=== PATIENT | male | born 1960 | race Two or more races ===

== ENCOUNTER 2016-10-19 10:29 | Day surgery (SDC) | payer OTHER ==
[2016-10-19 11:14] VITALS: BMI 30.4
[2016-10-19] MEDS ORDERED: PROPOFOL 20 ML ONE (12:23)
[2016-10-19] MEDS ORDERED: LIDOCAINE HCL/PF 2% SDV 5ML VIAL ONE (12:23)
[2016-10-19 13:10] VITALS: TEMP 97.8
[2016-10-19 14:42] VITALS: BP 109/68; PULSE 65
--- NOTE | 2016-10-20 15:51 | PATH ---
Surgical Pathology Report Patient Name: JARAD IBRAHIM [facility]. Rec. #: [id number] /Age/Gender: 1960 (Age: 56) / M Account: [id number] Location: [facility]-ENDOSCOPY Taken: 10/19/2016 Received: 10/19/2016 Reported: 10/20/2016 Physicians: Roldan Alamo M.D. Specimen(s) Received A: BX ERYTHEMA BODY B: BX GE JUNCTION Clinical History Epigastric pain Erythema body, irregular Z-line Final Diagnosis A. STOMACH, BODY, ERYTHEMA, BIOPSY: GASTRIC OXYNTIC MUCOSA WITH MILD TO MODERATE CHRONIC GASTRITIS WITH FOCAL SURFACE EROSION. IMMUNOSTAIN FOR H. PYLORI IS NEGATIVE FOR ORGANISMS. B. GE JUNCTION, IRREGULAR Z-LINE, BIOPSY: SQUAMOCOLUMNAR JUNCTIONAL MUCOSA IS ACTIVE AND CHRONIC INFLAMMATION AND REFLUX TYPE CHANGES. NO INTESTINAL METAPLASIA (HODGES'S ESOPHAGUS) IDENTIFIED. Electronically Signed Sudhakar Darnell M.D. Gross Description A. Received in formalin, labeled "biopsy erosion body" are 2 dumont, irregular portions of soft tissue measuring 0.2 and 0.5 cm in greatest dimension. The specimens are submitted in toto in one cassette. B. Received in formalin, labeled "biopsy of GE junction irregular Z-line" are 2 dumont, irregular portions of soft tissue averaging 0.3 cm in greatest dimension. The specimens are submitted in toto in one cassette. 10/19/201610/19/2016
== END 2016-10-19 13:50 | disposition home or self-care (01) ==
LOC: JASU-ENDO 10:29
PROVIDERS: ATTEND Internal Medicine Gastroenterology
PROC: 0DB68ZX Excision of Stomach, Via Natural or Artificial Opening Endoscopic, Diagnostic (ICD-10-PCS; 2016-10-19)
PROC: 0DB58ZX Excision of Esophagus, Via Natural or Artificial Opening Endoscopic, Diagnostic (ICD-10-PCS; principal; 2016-10-19 11:30)
DX: K29.50 Unspecified chronic gastritis without bleeding (principal)
CPT/HCPCS: 88305-TC; 88342-TC

== ENCOUNTER 2016-12-05 15:41 | Observation (INO) | payer OTHER ==
[2016-12-05 16:08] VITALS: TEMP 98.6; BMI 30.4
[2016-12-05] MEDS ORDERED: ASPIRIN 81 MG CHEWABLE TABLETS PO ONE (18:06)
--- NOTE | 2016-12-05 18:07 | PDOC ---
History of Present Illness - General History Source: Patient Exam Limitations: No Limitations <Latisha Miles - Last Filed: 12/05/16 18:13> <Beverly Ram - Last Filed: 12/06/16 01:41> - General Chief Complaint: Chest Pain Stated Complaint: CHEST PAIN Time Seen by Provider: 12/05/16 17:04 - History of Present Illness Initial Comments: 12/05/16 18:13 The patient is a 56 year old male with a significant past medical history of hyperlipidemia who presents to the ED with complaints of chest pain since earlier today. The patient reports a sudden onset of left sided non-radiating chest pain around 10:30 am this morning. He states his chest pain lasted for several minutes and he took an aspirin before symptoms resided. Patient reports another episode of chest pain around 12:30 pm earlier today. Patient describes the chest pain as sharp, a 7/10 in severity, and states he has never felt anything like this before. Patient had a recent Holter Monitor for a week that only showed tachycardia. Patient was told to take a daily aspirin by his bankruptcy paralegal. He states he had a Stress Test done 4 years ago that showed normal results. Denies shortness of breath or palpitations. Denies nausea, vomiting, or diarrhea. Denies dysuria or change in urinary output. Denies lightheadedness or headache. Denies any other symptoms. Senior Pensions Administrator: Dr. Aime Rojas (affiliated with [phone]) (Latisha Miles) Past History <Latisha Miles - Last Filed: 12/05/16 18:13> - Past Medical History Anemia: No Asthma: No Cancer: No Cardiac Disorders: No CVA: No COPD: No CHF: No Dementia: No Diabetes: No GI Disorders: No Disorders: No HTN: No Hypercholesterolemia: Yes Kidney Stones: Yes Liver Disease: No Seizures: No Thyroid Disease: No - Immunization History Immunization Up to Date: Yes - Suicide/Smoking/Psychosocial Hx Smoking Status: No Smoking History: Never smoked Have you smoked in the past 12 months: No Number of Cigarettes Smoked Daily: 0 If you are a former smoker, when did you quit?: 12yrs ago Information on smoking cessation initiated: No Hx Alcohol Use: No Drug/Substance Use Hx: No Substance Use Type: Alcohol <Beverly Ram - Last Filed: 12/06/16 01:41> - Past Medical History Allergies/Adverse Reactions: Allergies Allergy/AdvReac Type Severity Reaction Status Date / Time No Known Allergies Allergy Verified 12/05/16 16:02 Home Medications: Ambulatory Orders Aspirin [ASA -] 81 mg PO HS 10/16/13 Cardiac Specific PMH - Complaint Specific PMHX Pacemaker: No <Beverly Ram - Last Filed: 12/06/16 01:41> Review of Systems - Review of Systems Able to Perform ROS?: Yes All Other Systems: Reviewed and Negative <Latisha Miles - Last Filed: 12/05/16 18:13> <Beverly Ram - Last Filed: 12/06/16 01:41> - Review of Systems Comments:: 12/05/16 18:13 CONSTITUTIONAL: No reported: Fever, Chills, Diaphoresis, Generalized Weakness, Malaise, Loss of Appetite HEENT: No reported: Rhinorrhea, Nasal Congestion, Throat Pain, Throat Swelling, Difficulty Swallowing, Mouth Swelling, Ear Pain, Eye Pain, Visual Changes CARDIOVASCULAR: + chest pain No reported: Syncope, Palpitations, Irregular Heart Rate, Lightheadedness, Peripheral Edema RESPIRATORY: No reported: Cough, Shortness of Breath, SOB with Exertion, Orthopnea, Wheezing , Stridor, Hemoptysis GASTROINTESTINAL: No reported: Abdominal pain, Abdominal Distension, Nausea, Vomiting, Diarrhea, Constipation, Melena, Hematochezia GENITOURINARY: No reported: Dysuria, Frequency, Urgency, Hesitancy, Flank Pain, Genital Pain MUSCULOSKELETAL: No reported: Myalgia, Arthralgia, Joint Swelling, Back pain, Neck Pain SKIN: No reported: Rash, Itching, Pallor HEMEATOLOGIC/IMMUNOLOGIC: No reported: Easy Bleeding, Easy Bruising, Lymphadenopathy, Frequent infections ENDOCRINE: No reported: Unexplained Weight Gain, Unexplained Weight Loss, Heat Intolerance , Cold Intolerance NEUROLOGIC: No reported: Headache, Focal Weakness, Paresthesias, Vertigo, Lightheadedness, Unsteady Gait, Seizure, Mental Status Changes, Incontinence PSYCHIATRIC: No reported: Anxiety, Depression (Latisha Miles) *Physical Exam <Latisha Miles - Last Filed: 12/05/16 18:13> <Beverly Ram - Last Filed: 12/06/16 01:41> - Vital Signs Last Vital Signs Temp Pulse Resp BP Pulse Ox 98.6 F 70 18 109/78 100 12/05/16 16:02 12/05/16 20:36 12/05/16 20:36 12/05/16 20:36 12/05/16 20:36 - Physical Exam Comments: 12/05/16 18:13 GENERAL: Well developed, well nourished. Awake and alert. No acute distress. HEENT: Normocephalic, atraumatic. PERRLA, EOMI. No conjunctival pallor. Sclera are non- icteric. Moist mucous membranes. Oropharynx is clear. NECK: Supple. Full ROM. No JVD. Carotid pulses 2+ and symmetric, without bruits. No thyromegaly. No lymphadenopathy. CARDIOVASCULAR: Regular rate and rhythm. No murmurs, rubs, or gallops. Distal pulses are 2+ and symmetric. PULMONARY: No evidence of respiratory distress. Lungs clear to auscultation bilaterally. No wheezing, rales or rhonchi. ABDOMINAL: Soft. Non-tender. Non-distended. No rebound or guarding. No organomegaly. Normoactive bowel sounds. MUSCULOSKELETAL Normal range of motion at all joints. No bony deformities or tenderness. No CVA tenderness. EXTREMITIES: No cyanosis. No clubbing. No edema. No calf tenderness. SKIN: + multiple circular bruising patterns on back as a result of cupping Warm and dry. Normal capillary refill. No rashes. No jaundice. NEUROLOGICAL: Alert, awake, appropriate. Cranial nerves 2-12 intact. No deficits to light touch and temperature in face, upper extremities and lower extremities. No motor deficits in the in face, upper extremities and lower extremities. Normoreflexic in the upper and lower extremities. Normal speech. Toes are down- going bilaterally. Gait is normal without ataxia. PSYCHIATRIC: Cooperative. Good eye contact. Appropriate mood and affect. (Latisha Miles) Heart Score/ECG Review - History History: Moderately suspicious - Electrocardiogram EKG: Normal - Age Age: 45-65 - Risk Factors Risk Factors Heart Score: Yes Hx Hypercholesterolemia, Yes Smoking History Based on the list above the patient has:: 1-2 risk factors - Troponin Troponin: </= normal limit - Score Heart Score - Total: 3 - ECG Intrepretation Rhythm: Regular Rhythm - Superior Superior: Normal - ST and T Prolonged Q-T Interval: No - ECG Impressions Bradycardia: No Torsades yaakov Pointes: No WPW: No <Beverly Ram - Last Filed: 12/06/16 01:41> ED Treatment Course - LABORATORY CBC & Chemistry Diagram: 12/05/16 18:27 12/05/16 18:27 <Beverly Ram - Last Filed: 12/06/16 01:41> - ADDITIONAL ORDERS Additional order review: Laboratory Results 12/05/16 12/05/16 18:27 18:27 PT with INR 11.50 INR 1.02 Sodium 142 Potassium 4.9 Chloride 106 Carbon Dioxide 29 Anion Gap 7 L BUN 11 D Creatinine 0.8 Creat Clearance w eGFR > 60 Random Glucose 86 Calcium 8.9 Magnesium 2.4 Total Bilirubin 0.4 D AST 20 ALT 22 Alkaline Phosphatase 62 Creatine Kinase 120 Troponin I < 0.02 Total Protein 7.1 Albumin 3.9 12/05/16 18:27 RBC 5.08 MCV 85.3 MCHC 34.4 RDW 12.5 MPV 7.4 L Neutrophils % 50.6 Lymphocytes % 40.2 H Monocytes % 7.0 Eosinophils % 1.4 Basophils % 0.8 - RADIOLOGY Radiology Studies Ordered: Category Date Time Status CHEST PA & LAT [RAD] Stat Radiology 12/05/16 18:06 Taken - Medications Given in the ED: ED Medications Discontinued Medications Generic Name Dose Route Start Last Admin Trade Name Freq PRN Reason Stop Dose Admin Aspirin 162 mg 12/05/16 18:06 12/05/16 18:16 Asa - PO 12/05/16 18:07 162 mg ONCE ONE Administration Medical Decision Making <Latisha Miles - Last Filed: 12/05/16 18:13> <Beverly Ram - Last Filed: 12/06/16 01:41> - Medical Decision Making 12/05/16 21:53 I SPOKE W COVERING DATA MANAGEMENT ENGINEER FOR DR Rojas AND PT WILL BE obs TELE, PLAN - IF HE RULES OUT TO HAVE HIM FOLLOW UP WITH dR Rojas LATER THIS WEEK FIR A STRESS TEST (Beverly Ram) *DC/Admit/Observation/Transfer <Latisha Miles - Last Filed: 12/05/16 18:13> - Discharge Dispostion Admit: Yes <Beverly Ram - Last Filed: 12/06/16 01:41> Diagnosis at time of Disposition: Chest pain Qualifiers: Chest pain type: precordial pain Qualified Code(s): R07.2 - Precordial pain; R07.2 - Precordial pain - Referrals Referrals: Kemar Galdamez MD [Primary Care Provider] - - Attestations Scribe Attestion: 12/05/16 18:14 Documentation prepared by Latisha Miles, acting as faculty i on call medical assistant for Beverly Ram MD (Latisha Miles)
[2016-12-05] MEDS ORDERED: ASPIRIN 81 MG CHEWABLE TABLETS ONE (18:09)
[2016-12-05 18:45] LABS: BASOPHIL 0.8 % (0-2.0); EOSINOPHIL 1.4 % (0-4.5); MCH 29.3 pg (25.7-33.7); MCHC 34.4 g/dl (32.0-35.9); MEAN CELL VOLUME 85.3 fl (80-96); MEAN PLT VOLUME 7.4 fl (7.5-11.1); NEUTROPHILS 50.6 % (42.8-82.8); PLATELET COUNT 224 K/MM3 (134-434); RDW 12.5 % (11.9-15.9); WHITE BLOOD COUNT 6.2 K/mm3 (4.0-10.0)
[2016-12-05 18:58] LABS: INR 1.02 (0.82-1.09); PROTHROMBIN TIME (PATIENT) 11.5 SEC (9.98-11.88)
[2016-12-05 19:20] LABS: ALBUMIN 3.9 g/dl (3.4-5.0); ANION GAP 7 (8-16); CALCIUM 8.9 mg/dL (8.5-10.1); CO2 29 mmol/L (21-32); CREATININE 0.8 mg/dL (0.7-1.3); GLUCOSE,RANDOM 86 mg/dL (74-106); MAGNESIUM 2.4 mg/dL (1.8-2.4); SGOT/AST 20 U/L (15-37); SGPT/ALT 22 U/L (12-78)
[2016-12-05 19:25] LABS: ALK PHOS 62 U/L (45-117); BILIRUBIN,TOTAL 0.4 mg/dL (0.2-1.0); CPK 120 IU/L (39-308); TOT PROT 7.1 g/dl (6.4-8.2); TROPONIN I < 0.02 ng/ml (0.00-0.05)
--- NOTE | 2016-12-05 23:16 | HP ---
CHIEF COMPLAINT: Chest Pain PCP: Dr. Kemar Galdamez HISTORY OF PRESENT ILLNESS: This is a 56 y/o man with a past medical history of Hypotension, Hyperlipidemia , GERD, Renal Calculi. Who presents to the ED with left sided non-radiating chest pain x 1 day. Patient reports the pain as sharp, stabbing and constant since 10 am yesterday. Patient denies fever, chills, cough, dizziness, SOB, AP, N/V/D, constipation. Patient reports wearing a Holter Monitor for 1 week- Tachycardia, 8 weeks ago- no further treatment. Patient is scheduled for a Stress Test this week with Cardiology. ER course was notable for: (1) Troponin I- 0.02 (2) EKG- NSR 70 bpm, no ST or TWI (3) Chest Xray- image no infiltrate or effusion Recent Travel: None PAST MEDICAL HISTORY: See HPI PAST SURGICAL HISTORY: Lithotripsy Social History: Smoking: Former 35 year hx, quit 12 years ago Alcohol: None Drugs: None Lives with spouse Family History: Brother: Cancer, Allergies No Known Allergies Allergy (Verified 12/05/16 16:02) HOME MEDICATIONS: Home Medications Medication Instructions Recorded Aspirin [ASA -] 81 mg PO HS 10/16/13 REVIEW OF SYSTEMS CONSTITUTIONAL: Absent: fever, chills, diaphoresis, generalized weakness, malaise, loss of appetite, weight change HEENT: Absent: rhinorrhea, nasal congestion, throat pain, throat swelling, difficulty swallowing, mouth swelling, ear pain, eye pain, visual changes CARDIOVASCULAR: chest pain Absent: syncope, palpitations, irregular heart rate, lightheadedness, peripheral edema RESPIRATORY: Absent: cough, shortness of breath, dyspnea with exertion, orthopnea, wheezing, stridor, hemoptysis GASTROINTESTINAL: Absent: abdominal pain, abdominal distension, nausea, vomiting, diarrhea, constipation, melena, hematochezia GENITOURINARY: Absent: dysuria, frequency, urgency, hesitancy, hematuria, flank pain, genital pain MUSCULOSKELETAL: Absent: myalgia, arthralgia, joint swelling, back pain, neck pain SKIN: Absent: rash, itching, pallor HEMATOLOGIC/IMMUNOLOGIC: Absent: easy bleeding, easy bruising, lymphadenopathy, frequent infections ENDOCRINE: Absent: unexplained weight gain, unexplained weight loss, heat intolerance, cold intolerance NEUROLOGIC: Absent: headache, focal weakness or paresthesias, dizziness, unsteady gait, seizure, mental status changes, bladder or bowel incontinence PSYCHIATRIC: Absent: anxiety, depression, suicidal or homicidal ideation, hallucinations. PHYSICAL EXAMINATION Vital Signs - 24 hr 12/05/16 12/05/16 16:02 20:36 Temperature 98.6 F Pulse Rate 80 Pulse Rate [ 70 Apical] Respiratory 16 18 Rate Blood Pressure 109/71 Blood Pressure 109/78 [Right Arm] O2 Sat by Pulse 100 100 Oximetry (%) GENERAL: Awake, alert, and fully oriented, in no acute distress. HEAD: Normal with no signs of trauma. EYES: Pupils equal, round and reactive to light, extraocular movements intact, sclera anicteric, conjunctiva clear. No lid lag. EARS, NOSE, THROAT: Ears normal, nares patent, oropharynx clear without exudates. Moist mucous membranes. NECK: Normal range of motion, supple without lymphadenopathy, JVD, or masses. LUNGS: Breath sounds equal, clear to auscultation bilaterally. No wheezes, and no crackles. No accessory muscle use. HEART: Regular rate and rhythm, normal S1 and S2 without murmur, rub or gallop. CP non-reproducible upon palpation ABDOMEN: Soft, nontender, not distended, normoactive bowel sounds, no guarding, no rebound, no masses. No hepatomegaly or splenomegaly. MUSCULOSKELETAL: Normal range of motion at all joints. No bony deformities or tenderness. No CVA tenderness. UPPER EXTREMITIES: 2+ pulses, warm, well-perfused. No cyanosis. No clubbing. No peripheral edema. LOWER EXTREMITIES: 2+ pulses, warm, well-perfused. No calf tenderness. No peripheral edema. NEUROLOGICAL: Cranial nerves II-XII intact. Normal speech. Gait not observed. PSYCHIATRIC: Cooperative. Good eye contact. Appropriate mood and affect. SKIN: Warm, dry, normal turgor, no rashes or lesions noted, normal capillary refill. Laboratory Results - last 24 hr 12/05/16 12/05/16 12/05/16 18:27 18:27 18:27 WBC 6.2 RBC 5.08 Hgb 14.9 Hct 43.3 MCV 85.3 MCH 29.3 MCHC 34.4 RDW 12.5 Plt Count 224 MPV 7.4 L Neutrophils % 50.6 Lymphocytes % 40.2 H Monocytes % 7.0 Eosinophils % 1.4 Basophils % 0.8 PT with INR 11.50 INR 1.02 Sodium 142 Potassium 4.9 Chloride 106 Carbon Dioxide 29 Anion Gap 7 L BUN 11 D Creatinine 0.8 Creat Clearance w eGFR > 60 Random Glucose 86 Calcium 8.9 Magnesium 2.4 Total Bilirubin 0.4 D AST 20 ALT 22 Alkaline Phosphatase 62 Creatine Kinase 120 Troponin I < 0.02 Total Protein 7.1 Albumin 3.9 ASSESSMENT/PLAN: This is a 56 y/o man with a PMHx of: Hypotension, HLD, GERD, Renal Stones. Placed on Tele Observation for Chest Pain r/o ACS for further evaluation of their emergent condition. Plan: 1. Chest Pain - r/o ACS - HEART Score 3 - VERONICA Score 24 - Tele monitoring - Serial Enzymes - Lipid Panel, HgbA1C in am - Appreciate Cardiac Consult - Continue Asa - Morphine Sulfate prn 2. Hyperlipidemia - Continue atorvastatin - Lipid Panel in am - Monitor LFTs 3. GERD - Stable - no current home med - Consider H2 pamela or PPI prn 4. Hypotension - Hemodynamically stable - Will continue to monitor and treat with interventions accordingly 5. FEN - Tolerates PO Fluids - Replete lytes prn - Low Na, Low Cholesterol Diet 6. DVT Prophylaxis - OOB - SCDs - Consider ACs if LOS > 48 Code Status: Full Code Problem List - Problem (1) Chest pain Code(s): R07.9 - CHEST PAIN, UNSPECIFIED Qualifiers: Chest pain type: precordial pain Qualified Code(s): R07.2 - Precordial pain; R07.2 - Precordial pain (2) Hyperlipidemia Code(s): E78.5 - HYPERLIPIDEMIA, UNSPECIFIED (3) GERD (gastroesophageal reflux disease) Code(s): K21.9 - GASTRO-ESOPHAGEAL REFLUX DISEASE WITHOUT ESOPHAGITIS (4) H/O hypotension Code(s): Z86.79 - PERSONAL HISTORY OF OTHER DISEASES OF THE CIRCULATORY SYSTEM Visit type - Emergency Visit Emergency Visit: Yes ED Registration Date: 12/06/16 Care time: The patient presented to the Emergency Department on the above date and was hospitalized for further evaluation of their emergent condition. - New Patient This patient is new to me today: Yes Date on this admission: 12/06/16 - Critical Care Critical Care patient: No
[2016-12-06 07:14] LABS: BASOPHIL 0.9 % (0-2.0); EOSINOPHIL 2.1 % (0-4.5); MCH 29.2 pg (25.7-33.7); MCHC 34.2 g/dl (32.0-35.9); MEAN CELL VOLUME 85.5 fl (80-96); MEAN PLT VOLUME 7.4 fl (7.5-11.1); NEUTROPHILS 40.9 % (42.8-82.8); PLATELET COUNT 219 K/MM3 (134-434); WHITE BLOOD COUNT 6.7 K/mm3 (4.0-10.0)
[2016-12-06 07:33] LABS: ANION GAP 9 (8-16); CALCIUM 8.4 mg/dL (8.5-10.1); CO2 28 mmol/L (21-32); CREATININE 0.7 mg/dL (0.7-1.3); GLUCOSE,RANDOM 92 mg/dL (74-106); MAGNESIUM 2.4 mg/dL (1.8-2.4)
[2016-12-06 07:35] LABS: CHOLESTEROL 180 mg/dL (50-200); CPK 89 IU/L (39-308)
[2016-12-06 07:36] LABS: TROPONIN I < 0.02 ng/ml (0.00-0.05)
[2016-12-06] MEDS ORDERED: ASPIRIN 81 MG CHEWABLE TABLETS PO SCH (10:00)
--- NOTE | 2016-12-06 10:36 | CONSULT ---
Consult - text type - Consultation Consultation Note: Cardiology HISTORY OF PRESENT ILLNESS: This is a 56 y/o man with a past medical history of Hypotension, Hyperlipidemia , GERD, Renal Calculi. Who presents to the ED with left sided non-radiating chest pain x 1 day. Patient reports the pain as sharp, stabbing and constant since 10 am yesterday. Patient denies fever, chills, cough, dizziness, SOB, AP, N/V/D, constipation. Patient reports wearing a Holter Monitor for 1 week- Tachycardia, 8 weeks ago- no further treatment. Patient is scheduled for a Stress Test this week with Cardiology. Recent Travel: None PAST MEDICAL HISTORY: See HPI PAST SURGICAL HISTORY: Lithotripsy Social History: Smoking: Former 35 year hx, quit 12 years ago Alcohol: None Drugs: None Lives with spouse Family History: Brother: Cancer, Allergies No Known Allergies Allergy PE normal vitals normal cardiopulmonary exam abdomen soft no leg edema Impression: atypical chest pains, No IA or CHF EKG documented normal, but I have not seen anxious to be discharged Rec: Discharge with close cardiac follow-up
--- NOTE | 2016-12-06 11:07 | DS ---
Physical Exam: SUBJECTIVE: Patient seen and examined OBJECTIVE: Vital Signs Period Temp Pulse Resp BP Sys/Drummond Pulse Ox Last 24 Hr 66 18 103/60 95 PHYSICAL EXAM GENERAL: The patient is awake, alert, and fully oriented, in no acute distress. HEAD: Normal with no signs of trauma. EYES: PERRL, extraocular movements intact, sclera anicteric, conjunctiva clear. ENT: Ears normal, nares patent, oropharynx clear without exudates, moist mucous membranes. NECK: Trachea midline, full range of motion, supple. LUNGS: Breath sounds equal, clear to auscultation bilaterally, no wheezes, no crackles, no accessory muscle use. HEART: Regular rate and rhythm, S1, S2 without murmur, rub or gallop. ABDOMEN: Soft, nontender, nondistended, normoactive bowel sounds, no guarding, no rebound, no hepatosplenomegaly, no masses. EXTREMITIES: 2+ pulses, warm, well-perfused, no edema. NEUROLOGICAL: Cranial nerves II through XII grossly intact. Normal speech, gait not observed. PSYCH: Normal mood, normal affect. SKIN: Warm, dry, normal turgor, no rashes or lesions noted. LABS Laboratory Results - last 24 hr 12/06/16 12/06/16 12/06/16 06:54 06:54 06:54 WBC 6.7 RBC 5.12 Hgb 15.0 Hct 43.8 MCV 85.5 MCH 29.2 MCHC 34.2 RDW 13.0 Plt Count 219 MPV 7.4 L Neutrophils % 40.9 L Lymphocytes % 48.5 H D Monocytes % 7.6 Eosinophils % 2.1 Basophils % 0.9 Sodium 141 Potassium 4.0 Chloride 104 Carbon Dioxide 28 Anion Gap 9 BUN 12 Creatinine 0.7 Random Glucose 92 Hemoglobin A1c % Calcium 8.4 L Phosphorus 4.0 Magnesium 2.4 Creatine Kinase 89 Troponin I < 0.02 Triglycerides 209 H D Cholesterol 180 Total LDL Cholesterol 118 H HDL Cholesterol 32 L 12/06/16 06:54 WBC RBC Hgb Hct MCV MCH MCHC RDW Plt Count MPV Neutrophils % Lymphocytes % Monocytes % Eosinophils % Basophils % Sodium Potassium Chloride Carbon Dioxide Anion Gap BUN Creatinine Random Glucose Hemoglobin A1c % 5.4 Calcium Phosphorus Magnesium Creatine Kinase Troponin I Triglycerides Cholesterol Total LDL Cholesterol HDL Cholesterol HOSPITAL COURSE: Date of Admission:12/06/16 Date of Discharge: 12/06/16 Had chest pain throughout the night. Advised of risks of AMA including MT, stroke, . Wants to follow up with PCP Dr.Richard Rivera. Discharge Summary Reason For Visit: CHEST PAIN Current Active Problems Chest pain (Acute) GERD (gastroesophageal reflux disease) (Acute) H/O hypotension (Acute) Condition: Guarded - Instructions Referrals: Aime Rivera [Non Staff, Medical] - Disposition: AGAINST MEDICAL ADVICE - Home Medications Comprehensive Discharge Medication List: Ambulatory Orders Aspirin [ASA -] 81 mg PO HS 10/16/13
[2016-12-06 11:14] VITALS: BP 103/69; PULSE 72
--- NOTE | 2016-12-06 14:45 | EKG ---
Test Reason : Blood Pressure : / mmHG Vent. Rate : 070 BPM Atrial Rate : 070 BPM P-R Int : 130 ms QRS Dur : 092 ms QT Int : 394 ms P-R-T Axes : 007 017 003 degrees QTc Int : 425 ms NORMAL SINUS RHYTHM NORMAL ECG WHEN COMPARED WITH ECG OF 20-SEP-2015 03:49, NO SIGNIFICANT CHANGE WAS FOUND Confirmed by YESENIA HAYES MD ([id number]) on 12/06/2016 2:45:18 PM Referred By: Confirmed By:YESENIA HAYES MD
== END 2016-12-06 12:45 | disposition left against medical advice (07) ==
LOC: JER 15:41 → JERBED 12-06 01:41
PROVIDERS: ADMIT Internal Medicine; ATTEND Nurse Practitioner Acute Care
DX: R07.89 Other chest pain (principal); E78.5 Hyperlipidemia, unspecified; K21.9 Gastro-esophageal reflux disease without esophagitis; I95.9 Hypotension, unspecified; Z87.891 Personal history of nicotine dependence
CPT/HCPCS: 36415; 71020-TC; 80048; 80053; 80061; 82550; 83036; 83721; 83735; 84100; 84484; 85025; 85610; 93005; 93010; 99285-25; G0378

== ENCOUNTER 2021-03-24 20:42 | Observation (INO) | payer OTHER ==
[2021-03-24 21:29] LABS: INR 1.02 (0.83-1.09); PROTHROMBIN TIME (PATIENT) 11.7 SEC (9.7-13.0)
[2021-03-24 21:32] LABS: ALBUMIN 4.3 g/dl (3.4-5.0); BILIRUBIN,TOTAL 0.5 mg/dl (0.2-1); CALCIUM 9.7 mg/dl (8.5-10); CREATININE 1.2 mg/dl (0.55-1.3); TOT PROT 7.3 g/dl (6.4-8.2)
[2021-03-24 22:54] LABS: BASO % 0.8 % (0-2.0); EOS % 1.9 % (0-4.5); HEMATOCRIT 43.8 % (35.4-49); HEMOGLOBIN 14.7 GM/dL (11.7-16.9); LYMPH % 43.8 % (8-40); MCH 28.9 pg (25.7-33.7); MCHC 33.7 g/dl (32.0-35.9); MEAN CELL VOLUME 85.7 fl (80-96); MEAN PLT VOLUME 7.4 fl (7.5-11.1); MONO % 7.4 % (3.8-10.2); NEUT % 46.1 % (42.8-82.8); PLATELET COUNT 267 10^3/uL (134-434); RDW 13.2 % (11.9-15.9); WHITE BLOOD COUNT 7.1 K/mm3 (4.0-10.0)
[2021-03-25 04:57] VITALS: BMI 32.5
[2021-03-25 08:30] LABS: ALBUMIN 3.9 g/dl (3.4-5.0); BILIRUBIN,TOTAL 0.7 mg/dl (0.2-1); CREATININE 0.8 mg/dl (0.55-1.3); TOT PROT 6.6 g/dl (6.4-8.2)
[2021-03-25] MEDS ORDERED: ASPIRIN 81 MG CHEWABLE TABLETS PO SCH (10:00)
[2021-03-25 10:58] LABS: BASO % 0.5 % (0-2.0); EOS % 2.3 % (0-4.5); HEMATOCRIT 43.9 % (35.4-49); HEMOGLOBIN 14.7 GM/dL (11.7-16.9); LYMPH % 46.1 % (8-40); MCH 28.8 pg (25.7-33.7); MCHC 33.4 g/dl (32.0-35.9); MEAN CELL VOLUME 86.2 fl (80-96); MEAN PLT VOLUME 7.4 fl (7.5-11.1); NEUT % 43.1 % (42.8-82.8); PLATELET COUNT 231 10^3/uL (134-434); RDW 13.2 % (11.9-15.9)
[2021-03-25] MEDS ORDERED: ACETAMINOPHEN 325 MG TABLET (FP) PO PRN (13:04)
[2021-03-25] MEDS ORDERED: SODIUM CHLORIDE 1,000 ML IV STA (13:07)
[2021-03-25] MEDS ORDERED: MECLIZINE HCL 25 MG TABLET (FP) PO PRN (13:23)
[2021-03-25 13:52] VITALS: BP 104/64; PULSE 84; TEMP 98.2
[2021-03-25] MEDS ORDERED: ATORVASTATIN CA 10 MG TABLET (FP) PO SCH (22:00)
== END 2021-03-25 16:31 | disposition home or self-care (01) ==
LOC: FER 20:42 → FM/S 22:29 → UNDOADMOB 03-25 01:01 → FM/S 03-25 01:01
PROVIDERS: ADMIT Internal Medicine; ATTEND Nurse Practitioner Acute Care
PROC: 3E0337Z Introduction of Electrolytic and Water Balance Substance into Peripheral Vein, Percutaneous Approach (ICD-10-PCS; principal; 2021-03-24)
DX: R42 Dizziness and giddiness (principal); E66.9 Obesity, unspecified; Z68.32 Body mass index [BMI] 32.0-32.9, adult; I95.9 Hypotension, unspecified; N20.0 Calculus of kidney; E78.5 Hyperlipidemia, unspecified; Z86.73 Personal history of transient ischemic attack (TIA), and cerebral infarction without residual deficits; K21.9 Gastro-esophageal reflux disease without esophagitis; Z87.891 Personal history of nicotine dependence
CPT/HCPCS: 36415; 70450-TC; 70551-TC; 71045-TC-FY; 80053; 80061; 82550; 84443; 84484; 85025; 85610; 87081; 93005; 93880-TC; 96360; 99285-25; C9803; G0378; U0003; U0005

== ENCOUNTER 2021-10-02 17:59 | Emergency (ER) | payer OTHER ==
[2021-10-02 18:05] VITALS: BP 105/71; PULSE 105; RESP 18; TEMP 98; BMI 31.3
[2021-10-02 20:38] LABS: BASO % 0.9 % (0-2.0); EOS % 0.8 % (0-4.5); LYMPH % 38.5 % (8-40); MCH 30.4 pg (25.7-33.7); MCHC 34.1 g/dl (32.0-35.9); MEAN CELL VOLUME 89.3 fl (80-96); MEAN PLT VOLUME 7.2 fl (7.5-11.1); MONO % 7.8 % (3.8-10.2); PLATELET COUNT 232 10^3/uL (134-434); RBC 4.92 M/mm3 (4.00-5.60); RDW 12.8 % (11.9-15.9); WHITE BLOOD COUNT 7.4 K/mm3 (4.0-10.0)
[2021-10-02 21:14] LABS: CALCIUM 8.5 mg/dL (8.5-10.1)
[2021-10-02 21:15] LABS: ALBUMIN 3.6 g/dl (3.4-5.0); BLOOD UREA NITROGEN 11.9 mg/dL (7-18); MAGNESIUM 2.1 mg/dL (1.8-2.4)
[2021-10-02 21:18] LABS: CREATININE 0.7 mg/dL (0.55-1.3)
[2021-10-02 21:20] LABS: BILIRUBIN,TOTAL 0.3 mg/dL (0.2-1); TOT PROT 6.5 g/dl (6.4-8.2)
== END 2021-10-03 01:26 | disposition left against medical advice (07) ==
LOC: JER 17:59
DX: R07.9 Chest pain, unspecified (principal)
CPT/HCPCS: 36415; 71046-TC-FY; 80053; 83735; 84484; 85025; 85379; 93005; 93010; 99285-25

== ENCOUNTER 2021-10-30 09:49 | Emergency (ER) | payer OTHER ==
[2021-10-30 10:07] VITALS: RESP 16; TEMP 99.7; BMI 29.0
[2021-10-30 10:12] VITALS: BP 105/73; PULSE 66
[2021-10-30] MEDS ORDERED: SODIUM CHLORIDE 0.9% 1000 ML INFUS.BAG IV ONE (10:44)
[2021-10-30 11:10] LABS: HEMATOCRIT 45.5 % (35.4-49); HEMOGLOBIN 16.2 G/dL (11.7-16.9); MCH 31.6 pg (25.7-33.7); MCHC 35.5 g/dl (32.0-35.9); PLATELET COUNT 210.8 10^3/uL (134-434); RBC 5.11 10^6/uL (4.00-5.60); RDW 13.9 % (11.9-15.9); WHITE BLOOD COUNT 7.4 10^3/uL (4.0-10.8)
[2021-10-30 11:17] LABS: ALBUMIN 3.9 g/dl (3.4-5.0); BILIRUBIN,TOTAL 0.5 mg/dl (0.2-1); CREATININE 0.8 mg/dl (0.55-1.3); TOT PROT 6.6 g/dl (6.4-8.2)
[2021-10-30 13:09] LABS: PLATELET ESTIMATE ADEQUATE
== END 2021-10-30 13:13 | disposition home or self-care (01) ==
LOC: FER 09:49
DX: E86.0 Dehydration (principal)
CPT/HCPCS: 0241U-QW; 36415; 80053; 85025; 93005; 99284-25

== ENCOUNTER 2022-07-10 22:19 | Emergency (ER) | payer OTHER ==
[2022-07-10 23:02] VITALS: BMI 30.7
[2022-07-10] MEDS ORDERED: ACETAMINOPHEN 1000 MG/100 ML BAG IVPB ONE (23:34)
[2022-07-10] MEDS ORDERED: SODIUM CHLORIDE 0.9% 1000 ML INFUS.BAG IV ONE (23:34)
[2022-07-10] MEDS ORDERED: ACETAMINOPHEN INJECTION 100 ML IVPB ONE (23:48)
[2022-07-11 00:13] LABS: BASO % 0.3 % (0-2.0); HEMATOCRIT 41.7 % (35.4-49); HEMOGLOBIN 14.3 GM/dL (11.7-16.9); LYMPH % 30.7 % (8-40); MCH 28.5 pg (25.7-33.7); MCHC 34.2 g/dl (32.0-35.9); MEAN CELL VOLUME 83.3 fl (80-96); MEAN PLT VOLUME 6.7 fl (7.5-11.1); MONO % 8.5 % (3.8-10.2); NEUT % 60.5 % (42.8-82.8); PLATELET COUNT 230 10^3/uL (134-434); RBC 5.01 M/mm3 (4.00-5.60); RDW 12.6 % (11.9-15.9); WHITE BLOOD COUNT 6.1 K/mm3 (4.0-10.0)
[2022-07-11 01:07] LABS: POTASSIUM 4.1 mmol/L (3.5-5.1)
[2022-07-11 01:09] LABS: CALCIUM 8.7 mg/dL (8.5-10.1)
[2022-07-11 01:10] LABS: ALBUMIN 3.4 g/dl (3.4-5.0); BLOOD UREA NITROGEN 9.6 mg/dL (7-18); MAGNESIUM 1.9 mg/dL (1.8-2.4)
[2022-07-11 01:13] LABS: CREATININE 0.7 mg/dL (0.55-1.3)
[2022-07-11 01:14] LABS: BILIRUBIN,TOTAL 0.4 mg/dL (0.2-1); TOT PROT 6.8 g/dl (6.4-8.2)
[2022-07-11 02:46] VITALS: BP 95/57; PULSE 73; RESP 18; TEMP 98.9
[2022-07-11] MEDS ORDERED: SODIUM CHLORIDE 0.9% 500 ML INFUS.BAG IV ONE (02:49)
== END 2022-07-11 04:03 | disposition home or self-care (01) ==
LOC: JER 22:19
PROC: 3E033NZ Introduction of Analgesics, Hypnotics, Sedatives into Peripheral Vein, Percutaneous Approach (ICD-10-PCS; principal; 2022-07-10)
DX: R63.0 Anorexia (principal); R50.9 Fever, unspecified; R19.7 Diarrhea, unspecified; R53.1 Weakness; R05.9 Cough, unspecified; R09.3 Abnormal sputum; U07.1 COVID-19; R94.31 Abnormal electrocardiogram [ECG] [EKG]
CPT/HCPCS: 0241U-QW; 36415; 71045-TC-FY; 80053; 83735; 84484; 85025; 93005; 93010; 99285-25